=== PATIENT | male | born 1975 | race Caucasian/White ===

== ENCOUNTER → 2022-11-01 16:40 | Outpatient (CLI) | payer BC, SELFPAY ==
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
== END ==
PROVIDERS: PCP Orthopaedic Surgery; Referring Provider Orthopaedic Surgery Orthopaedic Trauma; Visit Provider Orthopaedic Surgery Orthopaedic Trauma
DX: S82.141A Displaced bicondylar fracture of right tibia, initial encounter for closed fracture (principal); S83.521A Sprain of posterior cruciate ligament of right knee, initial encounter; S72.421A Displaced fracture of lateral condyle of right femur, initial encounter for closed fracture; S83.421A Sprain of lateral collateral ligament of right knee, initial encounter; S83.511A Sprain of anterior cruciate ligament of right knee, initial encounter
CPT/HCPCS: 73721